=== PATIENT | female | born 1970 | race Native Hawaiian/Other Pacific Islander ===

== ENCOUNTER 2016-10-06 23:19 | Emergency (ER) | payer MEDICARE, OTHER ==
[~2016-10-06] VITALS: Ht 167.6 cm; Wt 58.0 kg
[2016-10-06 23:21] VITALS: BP 170/82; PULSE 126; RESP 20; TEMP 98.4; O2SAT 97
[2016-10-06] MEDS ORDERED: COZA25TA PO (23:45)
[2016-10-06] MEDS ORDERED: AZIT250T3 PO (23:45)
[2016-10-06] MEDS ORDERED: METH8TAB3 PO (23:45)
[2016-10-06] MEDS ORDERED: AMLO5TAB2 PO (23:45)
[2016-10-07 00:06] VITALS: RESP 20; O2SAT 100
[2016-10-07] MEDS ORDERED: SODIUM CHLOR 0.9% 1000 ML INJ 1,000 ML IV ONE (00:15)
[2016-10-07] MEDS ORDERED: SODIUM CHLORIDE 0.9% FLUSH 10 ML FLUSH IVF PRN (00:15)
[2016-10-07 00:21] LABS: AUTOMATED NEUTROPHIL # 8.4 TH/MM3 (1.8-7.7); BASOPHIL # 0.1 TH/MM3 (0-0.2); BASOPHIL % 0.6 % (0.0-2.0); EOSINOPHIL % 0.1 % (0.0-4.0); HEMATOCRIT 35.7 % (35.0-46.0); HEMO FLAGS DIFF FINAL; LYMPH % 11.8 % (9.0-44.0); LYMPHOCYTE # 1.2 TH/MM3 (1.0-4.8); MEAN CELL VOLUME 85.1 FL (80.0-100.0); MEAN CORPUSCULAR HEMOGLOBIN 29.2 PG (27.0-34.0); MEAN CORPUSCULAR HGB CONC 34.3 % (32.0-36.0); MONO % 2.1 % (0.0-8.0); NEUT % 85.4 % (16.0-70.0); PLATELET COUNT 214 TH/MM3 (150-450); RED CELL DISTRIBUTION WIDTH 13.7 % (11.6-17.2); WHITE BLOOD COUNT 9.8 TH/MM3 (4.0-11.0)
--- NOTE | 2016-10-07 00:28 | RADRPT ---
EXAM DATE/TIME: 10/07/2016 00:16 [place] COMPARISON: No previous studies available for comparison. INDICATIONS : Chest pain. Shortness of breath. MEDICAL HISTORY : None. SURGICAL HISTORY : None. ENCOUNTER: Initial ACUITY: 1 day PAIN SCORE: 2/10 LOCATION: Bilateral chest FINDINGS: A single view of the chest demonstrates the lungs to be symmetrically aerated without evidence of mas s, infiltrate or effusion. The cardiomediastinal contours are unremarkable. Osseous structures are intact. CONCLUSION: Normal examination. Roger Horta MD on October 07, 2016 at 0:26 Board Certified Radiologist. This report was verified electronically.
--- NOTE | 2016-10-07 00:43 | PD ---
HPI Chief Complaint: Cardiac Complaint Time Seen by Provider: 23:49 Travel History International Travel<30 days: No Contact w/Intl Traveler<30days: No Traveled to known affect area: No History of Present Illness HPI Patient is a 46-year-old female who presents to emergency room with complaints of palpitations. Patient reports that she had influenza 6 weeks ago and had coughing. Patient reports that her cough has been persistent, reports that she follow-up with the primary care doctor today and was started on a Z-Greg as well as Medrol Dosepak. Patient reports that after she started the antibiotics and steroids, she began to have palpitations. Patient reports that her heart rate was elevated over her baseline. Reports that she has been feeling a little short of breath with her symptoms. Patient reports no fevers or chills. Reports that she has been having a dry cough. Patient does arrive tachycardic with a heart rate in 120s. Patient denies history of PE or DVT. Patient currently is not on any control medications , denies any recent travels or long trips. Patient with no risk factors for PE. PFSH Past Medical History Medical History: Denies Significant Hx Diminished Hearing: No Tetanus Vaccination: Unknown Influenza Vaccination: No ?: Not LMP: MENOPAUSE Past Surgical History Surgical History: No Previous Surgery Social History Alcohol Use: No Tobacco Use: No Substance Use: No Allergies-Medications (Allergen,Severity, Reaction): Coded Allergies: Penicillin (Verified Allergy, Severe, 10/06/16) Reported Meds & Prescriptions Reported Meds & Active Scripts Active Reported Methylprednisolone 8 Mg Tab 4 Mg PO DAILY Azithromycin 250 Mg Tab 250 Mg PO DAILY Amlodipine (Amlodipine Besylate) 5 Mg Tab 5 Mg PO DAILY Cozaar (Losartan Potassium) 25 Mg Tab 25 Mg PO DAILY Review of Systems General / Constitutional: No: Fever Eyes: No: Visual changes HENT: No: Headaches Cardiovascular: Positive: Palpitations, Irregular Rhythm, Tachycardia, No: Chest Pain or Discomfort Respiratory: Positive: Shortness of Breath Gastrointestinal: No: Abdominal Pain Genitourinary: No: Dysuria Musculoskeletal: No: Pain Skin: No Rash Neurologic: No: Weakness Psychiatric: No: Depression Endocrine: No: Polydipsia Hematologic/Lymphatic: No: Easy Bruising Physical Exam Narrative GENERAL: Mild distress SKIN: Focused skin assessment warm/dry. HEAD: Atraumatic. Normocephalic. EYES: Pupils equal and round. No scleral icterus. No injection or drainage. ENT: No nasal bleeding or discharge. Mucous membranes pink and moist. NECK: Trachea midline. No JVD. CARDIOVASCULAR: Tachycardia. No murmur appreciated. RESPIRATORY: No accessory muscle use. Clear to auscultation. Breath sounds equal bilaterally. GASTROINTESTINAL: Abdomen soft, non-tender, nondistended. Hepatic and splenic margins not palpable. MUSCULOSKELETAL: No obvious deformities. No clubbing. No cyanosis. No edema. NEUROLOGICAL: Awake and alert. No obvious cranial nerve deficits. Motor grossly within normal limits. Normal speech. PSYCHIATRIC: Patient anxious on exam Data Data Last Documented VS Vital Signs Date Time Temp Pulse Resp B/P Pulse Ox O2 Delivery O2 Flow Rate FiO2 10/07/16 01:09 107 18 138/81 100 Room Air 10/06/16 23:21 98.4 Orders Basic Metabolic Panel (Bmp) (10/07/16 00:03) Ckmb (Isoenzyme) Profile (10/07/16 00:03) Complete Blood Count With Diff (10/07/16 00:03) D-Dimer (10/07/16 00:03) Troponin I (10/07/16 00:03) Chest, Single Ap (10/07/16 00:03) Ecg Monitoring (10/07/16 00:03) Iv Access Insert/Monitor (10/07/16 00:03) Oximetry (10/07/16 00:03) Sodium Chloride 0.9% Flush (Ns Flush) (10/07/16 00:15) Sodium Chlor 0.9% 1000 Ml Inj (Ns 1000 M (10/07/16 00:15) Electrocardiogram (10/07/16 ) Labs Laboratory Tests Test 10/07/16 00:09 White Blood Count 9.8 TH/MM3 Red Blood Count 4.20 MIL/MM3 Hemoglobin 12.3 GM/DL Hematocrit 35.7 % Mean Corpuscular Volume 85.1 FL Mean Corpuscular Hemoglobin 29.2 PG Mean Corpuscular Hemoglobin 34.3 % Concent Red Cell Distribution Width 13.7 % Platelet Count 214 TH/MM3 Mean Platelet Volume 10.5 FL Neutrophils (%) (Auto) 85.4 % Lymphocytes (%) (Auto) 11.8 % Monocytes (%) (Auto) 2.1 % Eosinophils (%) (Auto) 0.1 % Basophils (%) (Auto) 0.6 % Neutrophils # (Auto) 8.4 TH/MM3 Lymphocytes # (Auto) 1.2 TH/MM3 Monocytes # (Auto) 0.2 TH/MM3 Eosinophils # (Auto) 0.0 TH/MM3 Basophils # (Auto) 0.1 TH/MM3 CBC Comment DIFF FINAL Differential Comment D-Dimer Quantitative (PE/DVT) 0.19 MG/L FEU Sodium Level 139 MEQ/L Potassium Level 3.9 MEQ/L Chloride Level 105 MEQ/L Carbon Dioxide Level 26.8 MEQ/L Anion Gap 7 MEQ/L Blood Urea Nitrogen 17 MG/DL Creatinine 0.71 MG/DL Estimat Glomerular Filtration 89 ML/MIN Rate Random Glucose 120 MG/DL Calcium Level 9.7 MG/DL Total Creatine Kinase 95 U/L Troponin I LESS THAN 0.02 NG/ML MDM Medical Decision Making Medical Screen Exam Complete: Yes Emergency Medical Condition: Yes Interpretation(s) EKG at 2347: Sinus Tachycardia at 125bpm, qt/qtc: 292/366 repeat ekg at 0119: Sinus tach at 105bpm, qt/qtc: 335/396, no acute st or t wave changes Vital Signs Date Time Temp Pulse Resp B/P Pulse Ox O2 Delivery O2 Flow Rate FiO2 10/07/16 01:09 107 18 138/81 100 Room Air 10/07/16 00:06 20 100 Room Air 10/06/16 23:39 16 10/06/16 23:21 98.4 126 20 170/82 97 Room Air Laboratory Tests Test 10/07/16 00:09 White Blood Count 9.8 TH/MM3 (4.0-11.0) Red Blood Count 4.20 MIL/MM3 (4.00-5.30) Hemoglobin 12.3 GM/DL (11.6-15.3) Hematocrit 35.7 % (35.0-46.0) Mean Corpuscular Volume 85.1 FL (80.0-100.0) Mean Corpuscular Hemoglobin 29.2 PG (27.0-34.0) Mean Corpuscular Hemoglobin 34.3 % Concent (32.0-36.0) Red Cell Distribution Width 13.7 % (11.6-17.2) Platelet Count 214 TH/MM3 (150-450) Mean Platelet Volume 10.5 FL (7.0-11.0) Neutrophils (%) (Auto) 85.4 % (16.0-70.0) Lymphocytes (%) (Auto) 11.8 % (9.0-44.0) Monocytes (%) (Auto) 2.1 % (0.0-8.0) Eosinophils (%) (Auto) 0.1 % (0.0-4.0) Basophils (%) (Auto) 0.6 % (0.0-2.0) Neutrophils # (Auto) 8.4 TH/MM3 (1.8-7.7) Lymphocytes # (Auto) 1.2 TH/MM3 (1.0-4.8) Monocytes # (Auto) 0.2 TH/MM3 (0-0.9) Eosinophils # (Auto) 0.0 TH/MM3 (0-0.4) Basophils # (Auto) 0.1 TH/MM3 (0-0.2) CBC Comment DIFF FINAL Differential Comment D-Dimer Quantitative (PE/DVT) 0.19 MG/L FEU (0.00-0.50) Sodium Level 139 MEQ/L (136-145) Potassium Level 3.9 MEQ/L (3.5-5.1) Chloride Level 105 MEQ/L (98-107) Carbon Dioxide Level 26.8 MEQ/L (21.0-32.0) Anion Gap 7 MEQ/L (5-15) Blood Urea Nitrogen 17 MG/DL (7-18) Creatinine 0.71 MG/DL (0.50-1.00) Estimat Glomerular Filtration 89 ML/MIN (>89) Rate Random Glucose 120 MG/DL (74-106) Calcium Level 9.7 MG/DL (8.5-10.1) Total Creatine Kinase 95 U/L (26-192) Troponin I LESS THAN 0.02 NG/ML (0.02-0.05) Last Impressions Chest X-Ray 10/07/16 0003 Signed Impressions: Service Date/Time: September 00:16 - CONCLUSION: Normal examination. Roger Horta MD Differential Diagnosis Medication reaction, anxiety reaction, dehydration, hyperthyroidism though unlikely as patient had her thyroid levels recently checked, PE, arrhythmia, pneumonia Narrative Course Patient is a 46-year-old female who presents to emergency room with complaints of tachycardia. Patient reports that she has been suffering from the flu for the past 6 weeks and has had a chronic nonproductive cough. Patient did see her primary care doctor today and was started on steroids as well as azithromycin. Patient reports that after she started these medications, heart began to race. Reports that she has been feeling a little short of breath with her symptoms. Patient believes that this may be medication reaction. Patient was placed on a environmental monitoring technician upon arrival to the emergency room, EKG shows sinus tachycardia at 125 bpm, there is some minimal ST segment depressions , I do believe that this is rate related in nature. Plan to give IV fluids to bring down the heart rate, will repeat EKG after her heart rate slows down. We' ll check basic labs as well as d-dimer for possible PE as she is tachycardic, though this diagnosis is unlikely as she has no risk factors for PE. Patient also reports that she has had her thyroid levels checked recently, reports that her thyroid studies were normal. patient re-evaluated, patient reports that she is feeling much better. patient most likely with tachycardia most likely steroid induced. patient will stop using steroids, she will return to ER as needed. patient appreciative of care Diagnosis Primary Impression: Heart palpitations Patient Instructions: General Instructions Additional Instructions: Please return to emergency room as needed Please return to emergency room if symptoms worsen or progress and return Please drink plenty of fluids Please stop taking the steroids Disposition: 01 DISCHARGE HOME Condition: Stable Mayda Daley DO October 07, 2016 00:43
[2016-10-07 01:00] LABS: ANION GAP 7 MEQ/L (5-15); BICARBONATE 26.8 MEQ/L (21.0-32.0); BLOOD UREA NITROGEN 17 MG/DL (7-18); CHLORIDE 105 MEQ/L (98-107); GLOMERULAR FILTRATION RATE 89 ML/MIN (>89); POTASSIUM 3.9 MEQ/L (3.5-5.1); SODIUM (NA) 139 MEQ/L (136-145)
[2016-10-07 01:08] LABS: CREATINE KINASE 95 U/L (26-192)
[2016-10-07 01:09] VITALS: BP 138/81; PULSE 107; RESP 18; O2SAT 100
--- NOTE | 2016-10-07 17:05 | EKG ---
Date Performed: 10/07/2016 Time Performed: 01:19:08 PTAGE: 46 years EKG: SINUS TACHYCARDIA ABNORMAL RHYTHM ECG PREVIOUS TRACING : 10/06/2016 23.47 Compared to prior tracing no significant change DOCTOR: Isaiah Multani Interpretating Date/Time 10/07/2016 17:04:59
--- NOTE | 2016-10-07 17:06 | EKG ---
Date Performed: 10/06/2016 Time Performed: 23:47:44 PTAGE: 46 years EKG: SINUS TACHYCARDIA MINIMAL ST DEPRESSION ABNORMAL RHYTHM ECG NO PREVIOUS TRACING DOCTOR: Isaiah Multani Interpretating Date/Time 10/07/2016 17:06:32
== END 2016-10-07 01:25 | disposition home or self-care (01) ==
LOC: NEPC 23:19
DX: R00.2 Palpitations (principal); R00.0 Tachycardia, unspecified
CPT/HCPCS: 71010; 80048; 82550; 84484; 85025; 85379; 93005; 96360; 99285; J7030